=== PATIENT | male | born 1990 ===

== ENCOUNTER 2020-02-25 16:30 | Emergency (ER) | payer MEDICAID ==
[~2020-02-25] VITALS: Ht 175.3 cm; Wt 95.3 kg
[2020-02-25 16:43] VITALS: BP 129/76
--- NOTE | 2020-02-25 16:43 | NUR ---
AMB TO BED 09
--- NOTE | 2020-02-25 16:52 | NUR ---
29 YO MALE CO SOB DUE TO ASTHMA FOR 1WK. PT HAS NEBULIZER AT HOME BUT HAS RUN OUT OF MEDICATION. PT IS 97% ON RA. PT IS IN NO RESP DISTRESS. ALL VSS. PT IS AOX4. PMH- ASTHMA
[2020-02-25] MEDS ORDERED: predniSONE 20 MG TAB PO ONE (16:55)
[2020-02-25] MEDS ORDERED: ALBUTEROL SULFATE/IPRATROPIU 3 ML SOL IH ONE (16:55)
--- NOTE | 2020-02-25 17:08 | NUR ---
[facility] THERPAT AND RESPIRATORY DRUG GIVEN ORDERED
--- NOTE | 2020-02-25 17:15 | NUR ---
Respiratory therapist at bedside for respiratory intervention. Patient tolerated well.
[2020-02-25 18:14] VITALS: BP 129/76
--- NOTE | 2020-02-25 18:15 | NUR ---
Patient discharged with v/s stable. Written and verbal after care instructions given and explained. Patient alert, oriented and verbalized understanding of instructions. Ambulatory with steady gait. All questions addressed prior to discharge. ID band removed. Patient advised to follow up with PMD. Rx of ALBUTEROL AND PREDNISONE given. Patient educated on indication of medication including possible reaction and side effects. Opportunity to ask questions provided and answered.
== END 2020-02-25 18:14 | disposition home or self-care (01) ==
LOC: MED 16:30
DX: J45.901 Unspecified asthma with (acute) exacerbation (principal)
CPT/HCPCS: 71045; 94640; 99283; J7512; Q0092

== ENCOUNTER 2020-06-03 13:13 | Emergency (ER) | payer MEDICAID ==
[~2020-06-03] VITALS: Ht 175.3 cm; Wt 90.7 kg
[2020-06-03 13:20] VITALS: BP 130/74
--- NOTE | 2020-06-03 13:23 | NUR ---
C/O SOB X TODAY. RUN OUT OF INHALER 1 WEEK. PMH: ASTHMA
[2020-06-03] MEDS ORDERED: methylPREDNISolone SS 125 MG in WATER STERILE 2 ML IM ONE (13:25)
[2020-06-03] MEDS ORDERED: ALBUTEROL SULFATE/IPRATROPIU 3 ML SOL IH ONE ×2 (13:25)
--- NOTE | 2020-06-03 13:28 | NUR ---
[facility] THERAPY AND RESPIRATORY DRUGS GIVEN ORDERED POST [facility] THERAPYB PLACED ON SUUPLEMENTAL OXYGEN AT 2 LPM VIA NC
[2020-06-03] MEDS ORDERED: WATER STERILE 10 ML MC ONE (13:29)
[2020-06-03] MEDS ORDERED: methylPREDNISolone SS 125 MG/2 ML VIAL ONE (13:29)
--- NOTE | 2020-06-03 13:46 | NUR ---
Patient ambulated to bed 4. RN evaluating the patient at bedside.
--- NOTE | 2020-06-03 13:49 | NUR ---
Received patient from triage, A, A, O x 4, cooperative. Patient has underlying history of asthma. Reports being hospitalized in the past but never intubated. Patient states he ran out of his inhaler approximately 1 week ago. Suffers from bad seasonal allergies and reports worsening shortness of breath today. Denies associated fever or cough, runny nose or other concern for COVID-19. VVS, in NAD, HOB elevated, subsorter with sinus rhythm Resp even and unlabored, lungs clear, states he feels much better. Moving all exts w/o difficulty, no IV at this time Will continue to monitor
--- NOTE | 2020-06-03 15:00 | NUR ---
central processing technician at bedside.
--- NOTE | 2020-06-03 16:40 | NUR ---
Dr. Arellano at bedside evaluating patient for d/c
--- NOTE | 2020-06-03 16:47 | NUR ---
Dr. Arellano took patient off O2 to evaluate O2 sat.
--- NOTE | 2020-06-03 16:47 | NUR ---
Dr. Washington is evaluating the patient at bedside.
[2020-06-03 17:00] VITALS: BP 164/95
--- NOTE | 2020-06-03 17:04 | NUR ---
O2 sat on room air 90-92%
[2020-06-03] MEDS ORDERED: ALBUTEROL 0.083% 2.5 MG/3 ML NEBU INH ONE (17:15)
--- NOTE | 2020-06-03 17:48 | NUR ---
Patient ambulating to the washroom to void. RT to start [facility] breathing treatment prior to D/C
--- NOTE | 2020-06-03 18:25 | NUR ---
Patient feeling better, asked to call [facility] [phone] to pick him up
--- NOTE | 2020-06-03 18:34 | NUR ---
Patient medically cleared for discharged by MD with v/s stable. Written and verbal after care instructions given and explained. Patient alert, oriented and verbalized understanding of instructions. Ambulatory with steady gait. All questions addressed prior to discharge. ID band removed. Patient advised to follow up with PMD. Rx of albuterol x 2 and steriods given. Patient educated on indication of medication including possible reaction and side effects. Opportunity to ask questions provided and answered. All belongings taken with patient from the ED.
== END 2020-06-03 18:34 | disposition home or self-care (01) ==
LOC: MED 13:13
DX: J45.901 Unspecified asthma with (acute) exacerbation (principal)
CPT/HCPCS: 71045; 94640; 96372; 99285; J2930; J7613

== ENCOUNTER 2020-06-08 10:49 | Emergency (ER) | payer MEDICAID ==
[~2020-06-08] VITALS: Ht 170.2 cm; Wt 81.6 kg
[2020-06-08 10:49] VITALS: BP 178/138
[2020-06-08 10:50] VITALS: BP 178/138
--- NOTE | 2020-06-08 10:50 | NUR ---
PT PLACED ON BIPAP DUE TO WOB SETTINGS 12/6 RR12 FIO2 30% ALARMS ON AND AUDIBLE B\S ARE DIMINISHED BILATERALLY, AND 15MG ALBUTEROL TX GIVEN PT IS AWAKE AND ALERT
--- NOTE | 2020-06-08 10:51 | NUR ---
BIBA TAKEN TO BED 8
[2020-06-08] MEDS ORDERED: NACL 0.9% 1,000 ML IV ONE ×2 (10:55→16:05)
[2020-06-08] MEDS ORDERED: MAG SULF 2000 MG/WATER PREMIX 50 ML IV ONE (10:55)
[2020-06-08] MEDS ORDERED: methylPREDNISolone SS 125 MG in WATER STERILE 2 ML IV ONE (10:55)
[2020-06-08] MEDS ORDERED: ALBUTEROL 0.083% 2.5 MG/3 ML NEBU INH ONE (10:55)
[2020-06-08] MEDS ORDERED: WATER STERILE 10 ML MC ONE (11:37)
[2020-06-08] MEDS ORDERED: methylPREDNISolone SS 125 MG/2 ML VIAL ONE (11:37)
--- NOTE | 2020-06-08 11:57 | NUR ---
29 YEARS OLD MALE WITH HISTORY OF ASTHMA PRESENTS TO ER BY AMBULANCE WITH SEVERE SOB, PLACED ON BIPAP
--- NOTE | 2020-06-08 14:01 | NUR ---
TOOK PT OFF BIPAP AND PLACED ON 3LNC
[2020-06-08 15:44] LABS: BASOPHILS % (AUTO) 0.1 % (0.0-2.0); EOSINOPHILS # (AUTO) 0.1 K/uL (0-0.4); EOSINOPHILS % (AUTO) 0.7 % (0.0-4.0); HEMATOCRIT 49.4 % (36-52); HEMOGLOBIN 16.8 g/dL (12.0-18.0); LYMPHOCYTES # (AUTO) 0.3 K/uL (2.0-11.5); LYMPHOCYTES % (AUTO) 3.4 % (20.5-51.1); MEAN CORPUSCULAR HEMOGLOBIN 30 pg (27-31); MEAN CORPUSCULAR HGB CONC 34 g/dL (33-37); MEAN CORPUSCULAR VOLUME 86.9 fL (80-94); MONOCYTES # (AUTO) 0.1 K/uL (0.8-1.0); MONOCYTES % (AUTO) 1.1 % (1.7-9.3); NEUTROPHILS % (AUTO) 94.7 % (42.2-75.2); PLATELET COUNT (AUTO) 270 K/uL (140-450); RED BLOOD CELL COUNT(AUTO) 5.68 MIL/uL (4.20-6.10); RED CELL DISTRIBUTION WIDTH 13.3 % (11.6-13.7); WHITE BLOOD COUNT (AUTO) 9.6 K/uL (4.8-10.8)
[2020-06-08 16:01] LABS: ALBUMIN 3.9 g/dL (3.4-5.0); ANION GAP 17.7 (8-16); CARBON DIOXIDE 23.6 mmol/L (21-32); CREATININE 1.4 mg/dL (0.6-1.3); POTASSIUM 4.3 mmol/L (3.5-5.1); TOTAL BILIRUBIN 0.7 mg/dL (0.0-1.0)
--- NOTE | 2020-06-08 16:20 | NUR ---
PATIENT REASSESS CONDITION IMPROVED NO SOB RESTING.
[2020-06-08] MEDS ORDERED: ALBUTEROL 0.083% 2.5 MG/3 ML NEBU INH SCH (16:30)
[2020-06-08 18:17] VITALS: BP 148/71
--- NOTE | 2020-06-08 18:19 | NUR ---
PATIENT STABLE FOR TRANSFER TO [facility] ROOM 212A ALL QUESTIONS ANSWERED NO ACUTE RESPIRATORY DISTRESS.
--- NOTE | 2020-06-12 12:49 | NUR ---
LATE ENTRY - MAGNEISUM INFUSION COMPLETED 1255 06/08/20 Addendum: 06/12/20 at 1251 by MEDRI ALSO SOLUMEDROL IVP COMPLETED AT 1057, NS BLOUS 1 COMEPLTED AT 1155 AMD NS INFUSION 2 COMEPLTED AT 1718
== END 2020-06-08 18:28 | disposition designated cancer center or children's hospital (05) ==
LOC: MED 10:49
DX: J45.901 Unspecified asthma with (acute) exacerbation (principal); N17.9 Acute kidney failure, unspecified; E86.0 Dehydration; Z20.828 Contact with and (suspected) exposure to other viral communicable diseases
CPT/HCPCS: 36415; 71045; 80053; 84484; 85025; 87426; 93005; 94640; 96361; 96365; 96366; 96375; 99285; J2930; J3475; J7030; J7613